=== PATIENT | female | born 1990 | race Caucasian/White ===

== ENCOUNTER 2017-11-23 06:03 | Emergency (ER) | payer MEDICAID ==
[2017-11-23] MEDS ORDERED: IBUPROFEN 200 MG TAB PO ONE (06:27)
--- NOTE | 2017-11-23 06:34 | EDPHY ---
H & P Stated Complaint: generalized body aches - Personal History LMP (Females 10-55): 8-14 Days Ago Current Tetanus/Diphtheria Vaccine: Yes - Medical/Surgical History Hx Asthma: No Hx Chronic Respiratory Disease: No Hx Diabetes: No Hx Cardiac Disease: No Hx Renal Disease: No Hx Cirrhosis: No Hx Alcoholism: No Hx HIV/AIDS: No Hx Splenectomy or Spleen Trauma: No Other PMH: chronic recurrent multifocal osteomylitis, - Social History Smoking Status: Former smoker Time Seen by Provider: 11/23/17 06:14 HPI/ROS: Chief Complaint: Body aches HPI: 18-year-old woman started developing generalized body aches 2 days ago when she woke up in the morning. Patient states she had pain in her right leg and left arm and in her back at that time. She took ibuprofen with good relief the pain went away during the course today. Yesterday morning she woke up in the pain was more generalized and more severe. At that time she had aching in both her legs both of her arms her back in her abdominal muscles as well. She again took ibuprofen with good relief. Patient and again woke this morning and states the pain is now more severe, is a 9/10. She has associated mild sore throat. No fevers or chills. She travel to [place] about a week ago for a wedding. No insect bites or rashes. No travel outside the [place] recently. She does have a history of chronic recurrent multifocal osteomyelitis 10 years ago, but has not had any symptoms since. There is some family history of some rheumatologic disease. No headache. No nausea or vomiting. No chest pain or shortness of breath. No urinary urgency or frequency. Urine is not abnormally dark or malodorous. Last normal menstrual period was 2 weeks ago. She denies any weakness. No numbness or tingling. No recent heavy exercise. Has had some mild nasal congestion which she attributed to allergies. ROS: 10 point Review of Systems is negative except as noted in the HPI. Past medical history: Chronic recurrent multifocal osteomyelitis Social History: No smoking, occasional alcohol, no recreational drug use Family History: non-contributory Physical Exam: Gen: Awake, Alert, No Distress HEENT: Nose: no rhinorrhea Eyes: PERRLA, EOMI Mouth: Moist mucosa Neck: Supple, no JVD Chest: nontender, lungs clear to auscultation Heart: S1, S2 normal, no murmur Abd: Soft, mild lower abdominal tenderness which is midline, no rebound or guarding Back: no CVA tenderness, no midline tenderness Ext: no edema, non-tender Skin: no rash Neuro: CN II-XII intact, Sensation grossly intact, Strength 5/5 in bilateral upper and lower extremities (Krish Taylor) Constitutional: Initial Vital Signs Temperature (C) 37.0 C 11/23/17 06:05 Heart Rate 89 11/23/17 06:05 Respiratory Rate 16 11/23/17 06:05 Blood Pressure 125/84 H 11/23/17 06:05 O2 Sat (%) 98 11/23/17 06:05 O2 Delivery Mode Room Air Allergies/Adverse Reactions: almond Allergy (Verified 11/23/17 06:07) banana Allergy (Verified 11/23/17 06:07) coconut Allergy (Verified 11/23/17 06:07) Penicillins Allergy (Verified 11/23/17 06:07) Home Medications: Medication Instructions Recorded NK [No Known Home Meds] 11/23/17 Medical Decision Making ED Course/Re-evaluation: Patient signed out to Dr. Ward pending laboratory tests re-evaluation. (Krish Taylor) Other Provider: Care assumed at 7:00 a.m. With plan for discharge if labs do not show rhabdomyolysis or other emergent condition. 745: Results and plan discussed with patient in detail. She is a [facility] patient and will follow up with them. This time it seems unlikely that she has rhabdomyolysis or osteomyelitis or compartment syndrome or an acute infectious process or other emergent medical or surgical condition. She states that her pain will be adequately controlled with nonsteroidals and is stable for discharge (Javad Ward) - Data Points Laboratory Results: Laboratory Results 11/23/17 07:09 11/23/17 07:09 11/23/17 11/23/17 11/23/17 07:09 07:09 06:00 WBC 3.48 10^3/uL L 10^3/uL (3.80-9.50) RBC 4.35 10^6/uL 10^6/uL (4.18-5.33) Hgb 13.7 g/dL g/dL (12.6-16.3) Hct 41.3 % % (38.0-47.0) MCV 94.9 fL fL (81.5-99.8) MCH 31.5 pg pg (27.9-34.1) MCHC 33.2 g/dL g/dL (32.4-36.7) RDW 13.2 % % (11.5-15.2) Plt Count 218 10^3/uL 10^3/uL (150-400) MPV 10.1 fL fL (8.7-11.7) Neut % (Auto) 54.5 % % (39.3-74.2) Lymph % (Auto) 29.9 % % (15.0-45.0) [place] % (Auto) 12.4 % % (4.5-13.0) Eos % (Auto) 2.3 % % (0.6-7.6) Baso % (Auto) 0.9 % % (0.3-1.7) Nucleat RBC Rel Count 0.0 % % (0.0-0.2) Absolute Neuts (auto) 1.90 10^3/uL 10^3/uL (1.70-6.50) Absolute Lymphs (auto) 1.04 10^3/uL 10^3/uL (1.00-3.00) Absolute Monos (auto) 0.43 10^3/uL 10^3/uL (0.30-0.80) Absolute Eos (auto) 0.08 10^3/uL 10^3/uL (0.03-0.40) Absolute Basos (auto) 0.03 10^3/uL 10^3/uL (0.02-0.10) Absolute Nucleated RBC 0.00 10^3/uL 10^3/uL (0-0.01) Immature Gran % 0.0 % % (0.0-1.1) Immature Gran # 0.00 10^3/uL 10^3/uL (0.00-0.10) Sodium 140 mEq/L mEq/L (135-145) Potassium 4.4 mEq/L mEq/L (3.3-5.0) Chloride 106 mEq/L mEq/L (97-110) Carbon Dioxide 24 mEq/l mEq/l (22-31) Anion Gap 10 mEq/L mEq/L (8-16) BUN 11 mg/dL mg/dL (7-23) Creatinine 0.7 mg/dL mg/dL (0.6-1.0) Estimated GFR > 60 Glucose 81 mg/dL mg/dL (70-100) Calcium 8.4 mg/dL L mg/dL (8.5-10.4) Magnesium 1.7 mg/dL mg/dL (1.6-2.3) Creatine Kinase 40 IU/L IU/L (0-156) TSH Pending Urine Color YELLOW Urine Appearance CLEAR Urine pH 7.0 (5.0-7.5) Ur Specific Ly[place] 1.011 (1.002-1.030) Urine Protein NEGATIVE (NEGATIVE) Urine Ketones NEGATIVE (NEGATIVE) Urine Blood NEGATIVE (NEGATIVE) Urine Nitrate NEGATIVE (NEGATIVE) Urine Bilirubin NEGATIVE (NEGATIVE) Urine Urobilinogen NEGATIVE EU EU (0.2-1.0) Ur Leukocyte Esterase NEGATIVE (NEGATIVE) Urine Glucose NEGATIVE (NEGATIVE) Urine Test 11/23/17 06:00 WBC RBC Hgb Hct MCV MCH MCHC RDW Plt Count MPV Neut % (Auto) Lymph % (Auto) Chester % (Auto) Eos % (Auto) Baso % (Auto) Nucleat RBC Rel Count Absolute Neuts (auto) Absolute Lymphs (auto) Absolute Monos (auto) Absolute Eos (auto) Absolute Basos (auto) Absolute Nucleated RBC Immature Gran % Immature Gran # Sodium Potassium Chloride Carbon Dioxide Anion Gap BUN Creatinine Estimated GFR Glucose Calcium Magnesium Creatine Kinase TSH Urine Color Urine Appearance Urine pH Ur Specific Lyons Urine Protein Urine Ketones Urine Blood Urine Nitrate Urine Bilirubin Urine Urobilinogen Ur Leukocyte Esterase Urine Glucose Urine Test NEGATIVE Medications Given: Discontinued Medications Sodium Chloride (Ns) 1,000 mls @ 0 mls/hr IV ONCE ONE; Wide Open PRN Reason: Protocol Stop: 11/23/17 06:41 Last Admin: 11/23/17 07:13 Dose: 1,000 mls Ibuprofen (Motrin) 400 mg PO EDNOW ONE Stop: 11/23/17 06:28 Last Admin: 11/23/17 06:39 Dose: 400 mg Departure - Departure Disposition: Home, Routine, Self-Care Clinical Impression: Myalgia Condition: Good Instructions: Musculoskeletal Pain (ED) Additional Instructions: Lab results include: WBC 3.48, Hb 13, Hct 41, negative, normal UA. Chemistry: normal CPK: l40 Calcium:8.4 TSH: pending, call later today for result at [phone] Referrals: Zenaida Mueller, RN, SUBSTANCE ABUSE SERVICES DIRECTOR [Primary Care Provider] - As per Instructions
[2017-11-23] MEDS ORDERED: NS 1,000 ML IV ONE (06:40)
[2017-11-23 07:17] LABS: PLATELET COUNT 218 10^3/uL (150-400)
[2017-11-23 07:41] LABS: CREATINE KINASE 40 IU/L (0-156)
[2017-11-23 07:56] VITALS: BP 104/61
== END 2017-11-23 07:56 | disposition home or self-care (01) ==
DX: M79.1 Myalgia (principal); E86.9 Volume depletion, unspecified; Z87.891 Personal history of nicotine dependence

== ENCOUNTER → 2018-11-29 | Outpatient (CLI) | payer OTHER, MEDICAID | LOC: BRMIMAGING 09:24 ==